=== PATIENT | female | born 1945 | race Caucasian/White ===

== ENCOUNTER 2018-02-02 12:36 | Inpatient (IN) | payer MEDICARE, OTHER ==
[~2018-02-02] VITALS: Ht 167.6 cm; Wt 110.2 kg
--- NOTE | ~2018-02-02 | DS ---
[place], [place] DISCHARGE SUMMARY [facility]: [id number] UN[facility] #: [id number] ROOM: 312 DOCTOR: JELENA ACOSTA DO BIRTHDATE: [birth year] DOS: 02/07/2018 PSYCHIATRIC DISCHARGE SUMMARY CHIEF COMPLAINT: "I don't like that place, I don't want to go back there." PRESENT ILLNESS: The patient is a 72-year-old white female who presented to [facility] for reported increasing depression and impulsive activity including smoking while on supplemental oxygen, eloping the facility to obtain more cigarettes and to continue to smoke in her room. The patient states that she was unaware that she was coming to the [facility] and states that she was not told that she was coming to a psych facility; however, per nursing staff when they were bringing her up to the unit, when asked if she knew where she was going, the patient stated psychiatric unit. Of note, in the chart, per chart review, the patient was engaging in high risk behavior that was very impulsive in nature. She was also showing signs of progressing depressive symptoms including that she was not eating well, sleeping well and not attending to her ADLs. The patient was sent to the [facility] for medical stabilization and to rule out organic causes of her altered mental status. The patient upon admission was requesting alternative finding, alternative housing options as she did not want to return to [facility]. PAST MEDICAL HISTORY: This is significant for coronary artery disease, COPD, glaucoma, diabetes, neuropathy, vitamin D deficiency and nicotine dependence. SOCIAL HISTORY: The patient denied alcohol use. The patient also denied illicit drug use. The patient is a current smoker. She is currently smoking 1 pack a day and she is currently on supplemental oxygen 2-3 liters at home. STRENGTHS: The patient is highly educated. She was a former registered nurse. She has excellent verbal skills. She is currently ambulatory with a walker. ALLERGIES: The patient is allergic to HYDROMORPHONE. SUMMARY OF HOSPITAL COURSE: The patient was admitted to the [facility] and at that time, it was decided to increase her Cymbalta from 60 mg at bedtime to 90 mg at bedtime. This was done in order to positively impact her mood as well as decreasing the pain of neuropathy and to assist with her anxiety. The patient stated at that time that she was interested in smoking cessation. The following day, the patient stated that Cymbalta was helping with her mood and had decreased her pain. She stated she was making progress with a nicotine patch and stated that she was having decreased cravings. At that time, it was decided to not make any changes to her psychotropic regimen as she was tolerating this well. The patient continued to state that she was no longer having cravings for nicotine. It was decided at that time to lower the Nicoderm patch from 21 to 14 mg a day. Cymbalta was continued. The patient also expressed her interest in finding alternative housing as she stated she did not want to return to [facility]. At that time, we discussed that PT and OT would be consulted for further recommendations for possible discharge options. PT was consulted and they recommend that the patient be discharged back to [place], [place] DISCHARGE SUMMARY NAME: SHAJI TERRELL UNIT #: [id number] ROOM: 312 DOCTOR: JELENA ACOSTA DO BIRTHDATE: [birth year] when medically stable. OT was also consulted, but per OT report, the patient refused to participate in therapy. The patient was made aware of this and we also had a discussion at length regarding her decision to not participate in therapy may make it difficult for her to find alternative housing. She stated that she was now willing to return to [facility]. We also discussed at great length the safety issues regarding her smoking with supplemental oxygen. She stated that she was ready to quit smoking and that the nicotine patch was working. At that time, she stated that she was having signs of increased depression. We discussed starting Wellbutrin, which she voiced understanding and was in agreement. Wellbutrin was started in order to augment the effects of Cymbalta. The patient tolerated this change well and states that she is having decreased anxiety, decreased depression and decreased cravings on current psychotropic regimen. Sleep and appetite have normalized. The patient was able to tolerate current psychotropic regimen well and did not exhibit any side effects from the medication. She has improved significantly to return back to [facility]. She states that she will continue her nicotine cessation progress. Sleep and appetite have normalized. Gabapentin level was ordered on 02/05/2018 and these results are still pending upon discharge. They are not available for review at this time. The patient was informed that she will be discharged back to [facility] and she is in agreement with plan. MENTAL STATUS AT DISCHARGE: The patient is alert and oriented to person, place and time. Her mood is trending towards euthymia. Her affect is more appropriate. There are no signs of bill or hypomania. There are no signs of gross psychosis. The patient has been cooperative to reorientation by nursing staff. She is compliant with medications. Short term and shelter memories are intact. It is unsure at this time if the patient has been forthcoming with her symptoms in regards to craving for nicotine, however, she states that the Nicoderm patch has assisted in her smoking cessation and she plans to continue to quit smoking. No signs of auditory or visual hallucination. The patient has been attending to her ADLs without any difficulty. The patient has been participating in group. She has been medication compliant. FINAL DIAGNOSES AT DISCHARGE: Major depression disorder, recurrent, severe. PLAN: The patient is to return back to [facility] via [facility]. Discharge is tentatively scheduled for departure from [facility] to [facility] at 3:00 p.m. today. Prescriptions have been printed and placed in her chart. These will go with her to [facility]. She will be followed by the staff psychiatrist there. ADDENDUM BY DR. ECHEVERRIA 02/16/18 11:15 AM: Above note reviewed. Agree with observations, recommendations, and overall treatment plan. [place], [place] DISCHARGE SUMMARY NAME: SHAJI TERRELL UNIT #: [id number] ROOM: 312 DOCTOR: JELENA ACOSTA DO BIRTHDATE: [birth year] Jelena Acosta DO GLORIA ECHEVERRIA MD CM:DISCHARG [id number] T: JELENA ACOSTA DO 02/16/18 1407 JOVAN LAZAR [facility]
--- NOTE | ~2018-02-02 | PR ---
[place], [place] PROGRESS NOTE NAME: SHAJI TERRELL UNIT #: [id number] ROOM: 312 DOCTOR: GLORIA ECHEVERRIA MD BIRTHDATE: [birth year] DOS: 02/05/2018 CHIEF COMPLAINT: "I am doing so much better, thank you so much for helping me." SUMMARY OF THE VISIT: The patient was interviewed as she sat after having completed breakfast. She was talking to both male and female peers. She smiled readily as I approached and reported that she is feeling so much better with the medication changes and with the fact that the Nicoderm seems to be helping curb her cravings. She does feel that she can successfully go from 21 to 14 at this point. She does also note no side effects from the recent increase in the Cymbalta and feels that has helped curb her pain as well as combat depression. She is sleeping well and eating well. MENTAL STATUS: She is alert and oriented. Mood does seem to be strongly trending towards euthymia. Affect is more appropriate. There is no bill or hypomania. There is no gross psychosis. Short, intermediate, and long-term memory are intact. PLAN: I will go ahead and lower the Nicoderm patch from 21-14 mg a day. Continue the Cymbalta. Continue to engage in individual and ramos milieu activity, returning to the least restrictive environment when stable. GLORIA ECHEVERRIA MD CM:PNTRANS [id number] GLORIA ECHEVERRIA MD 02/05/18 1256 interface
--- NOTE | ~2018-02-02 | PR ---
[place], [place] PROGRESS NOTE [id number] UNIT #: [id number] ROOM: 312 DOCTOR: JELENA ACOSTA DO BIRTHDATE: [birth year] DOS: 02/06/2018 CHIEF COMPLAINT: "I still have cravings every time I eat." SUMMARY OF VISIT: The patient is a 72-year-old white female who [facility] for reported increased depression and impulsive actions which included smoking while on supplemental oxygen at [facility] in [place]. The patient today was interviewed in the dining room. She had just finished her breakfast. She did not appear to be in any distress. Her only complaints this morning were of persistent cravings to smoke after mealtimes. She also was complaining of dry eyes at this time. We reassured her that we would be assisting her in her smoking cessation; however, per nursing staff, she has stated to some nursing staff members that she was not having cravings and today she did mention to us that she was having cravings. The patient also reports improvement in her depression; however, she states that she still is feeling that she is still depressed. Eating and appetite have improved and her sleep has improved overall. The patient was reassured that her eye drops are scheduled for her to receive at nighttime. Respiratory was present and they have decreased her oxygen to 3 liters. MENTAL STATUS EXAMINATION: The patient is alert and oriented to person, place and time. Her mood is trending towards euthymia. Her affect is more appropriate. No signs of bill or hypomania. There are no signs of gross psychosis. The patient is able to be reoriented by nursing staff. She is compliant with medications. Short term, maintenance repairer memory are intact. It is unsure at this time if patient is forthcoming with her symptoms of cravings for nicotine as she is telling nursing staff otherwise. PLAN: 1. The patient was informed that we would be starting Wellbutrin 75 mg q.a.m. and 75 mg p.o. at 1400. This will be used to augment Cymbalta and to address her depression. 2. OT was consulted; however, per OT, the patient refused to participate in therapy. PT was also consulted and they recommended the patient to be discharged back to [facility] when medically stable. 3. Dry eyes. The patient is currently scheduled to receive Latanoprost drops at bedtime for dry eyes. The patient was also encouraged to increase fluid intake due to her complaints of dry mouth. 4. We will continue Nicoderm patch 14 mg a day to assist with her smoking cessation. 5. Disposition. The patient is likely to be discharged sometime this week. We will coordinate with social organization professor and project planner in terms of what her options are taking into consideration OT and PT recommendations. The patient was also informed that she must do her best to quit smoking as it is difficult to find placement for her given her recurrent episodes of smoking while being in the intermediate care facility. She voiced understanding and stated that she will work towards smoking cessation during this hospital admission. We also reiterated the importance of safety as it is not safe to smoke while on supplemental oxygen. The patient voiced understanding and is in agreement with plan: We will continue to engage in individual and ramos milieu activity, [place], [place] PROGRESS NOTE NAME: SHAJI TERRELL UNIT #: [id number] ROOM: [facility] DOCTOR: JELENA ACOSTA DO BIRTHDATE: [birth year] returning to the least restrictive environment when psychiatrically stable. ADDENDUM BY DR. ECHEVERRIA 02/16/18 11:15 AM: Above note reviewed. Agree with observations, recommendations, and overall treatment plan. Jelena Acosta DO GLORIA ECHEVERRIA MD CM:PNTRANS [id number] T: JELENA ACOSTA DO 02/16/18 1406 JOVAN LAZAR.ALEXANDRR
--- NOTE | ~2018-02-02 | PR ---
[place], [place] PROGRESS NOTE NAME: SHAJI TERRELL UNIT #: [id number] ROOM: 312 DOCTOR: GLORIA ECHEVERRIA MD BIRTHDATE: [birth year] DOS: 02/04/2018 CHIEF COMPLAINT: "I am so mad at [facility]. They lied to me. SUMMARY OF THE VISIT: This patient was interviewed in the group therapy room. She reports to me that she is upset with [facility] and feels that they lied to her stating that she was coming to an inpatient smoking cessation program and did not mention anything about her going into a psychiatric unit. She does say that she has improved since she has been here and feels that the medication adjustment with the Cymbalta has actually helped her mood and has decreased her pain as well. She also feels she is making progress with the nicotine patch and feels that she is having less cravings. She still voices disappointment with the facility, though stating that she feels that they lied to her repeatedly to do whatever they wanted to do at a convenience. MENTAL STATUS: She is alert and oriented with some gaps. Mood does seem to be trending towards euthymia. Affect is more appropriate. There is no bill or hypomania. There are no overt auditory or visual hallucinations. No delusions, no paranoia. Short, intermediate, and long-term memory for the most part are intact. PLAN: I will maintain her current psychotropic regimen. I will check a Neurontin level in the morning to ensure that it is therapeutic. Continue to engage in individual and ramos milieu activity, returning to the least restrictive environment when psychiatrically stable. GLORIA ECHEVERRIA MD CM:PNTRANS [id number] GLORIA ECHEVERRIA MD 02/04/182045 interface
--- NOTE | ~2018-02-02 | WRIGHTHP ---
[place], [place] PATIENT HISTORY AND PHYSICAL EXAM NAME: SHAJI TERRELL UNIT #: [id number] ROOM: 312 DOCTOR: GLORIA ECHEVERRIA MD BIRTHDATE: [birth year] DOS: 02/03/2018 CHIEF COMPLAINT: "I don't like it at that place. I do not want to go back." HISTORY OF PRESENT ILLNESS: This is a 72-year-old white female known to me from her stay at [place], [place]. The patient presents now to [facility] for reported increase in depression with impulsive actions that includes smoking while on oxygen, eloping the facility to obtain more cigarettes and repeatedly smoking in her room. The patient has apparently, per their report, been engaging in high risk behavior and is very impulsive. The patient reports ongoing depressive symptoms, however, and states that she is not sleeping well, eating well, not attending to her ADLs and just feels hopeless and helpless because of her stay there. She is requesting that her meds be adjusted and that we help her find alternative placement. She is admitted now to rule out any organic factors, to engage in individual and ramos milieu activity, returning her then to the least restrictive environment when psychiatrically stable. PAST MEDICAL HISTORY: Significant for coronary artery disease, COPD, glaucoma, diabetes, neuropathy, vitamin D deficiency and nicotine dependence. Past medical history is also remarkable for smoking 1 pack of cigarettes per day. She denies any alcohol or illicit drug use. 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 She has good verbal skills and she is ambulatory. MENTAL STATUS: She is alert and oriented times 3. Mood does seem to be somewhat depressed with anxious overtones. She endorses multiple neurovegetative symptoms. There is no bill or hypomania. There is no gross psychosis. Short, intermediate, and long-term memory for the most part are intact. DIAGNOSIS: Major depression, recurrent. PLAN: I will go ahead and increase her Cymbalta from 60 mg at bedtime to 90 mg at bedtime trying to impact positively on her mood as well as decreasing the pain of the neuropathy and helping with anxiety. We will engage her in individual and ramos milieu activity. financial services counselor is aware to look for alternative placement if at all possible. We will return then to the least restrictive environment when psychiatrically stable. [place], [place] PATIENT HISTORY AND PHYSICAL EXAM NAME: SHAJI TERRELL UNIT #: [id number] ROOM: 312 DOCTOR: GLORIA ECHEVERRIA MD BIRTHDATE: [birth year] GLORIA ECHEVERRIA MD CM:HISPHYS:PATIENT HISTORY AND PHYSICAL EXAMINATION [id number] GLORIA ECHEVERRIA MD 02/16/18 0825 interface
[2018-02-02] MEDS ORDERED: ASPIRIN81 M1 PO (15:29)
[2018-02-02] MEDS ORDERED: BASAG SOL SQ (15:30)
[2018-02-02] MEDS ORDERED: BENADRYL ALLERG25 M5 PO (15:31)
[2018-02-02] MEDS ORDERED: CYMBALTA60 MG PO (15:32)
[2018-02-02] MEDS ORDERED: CHLORASEPTIC S1 EACH PO (15:32)
[2018-02-02] MEDS ORDERED: COLACE100 MG PO (15:32)
[2018-02-02] MEDS ORDERED: DUONEB 3 MG/3 ML3 M1 INH (15:33)
[2018-02-02] MEDS ORDERED: DULCOLAX10 M1 R (15:33)
[2018-02-02] MEDS ORDERED: 24 HOUR ALLER15.8 ML INH (15:34)
[2018-02-02] MEDS ORDERED: ROBITUSSIN5 ML PO (15:35)
[2018-02-02] MEDS ORDERED: GABAPENTIN600 MG PO (15:35)
[2018-02-02] MEDS ORDERED: LATANOPROST2.5 ML OU (15:36)
[2018-02-02] MEDS ORDERED: GLUCOPHAGE500 M1 PO (15:37)
[2018-02-02] MEDS ORDERED: MECLIZINE HCL12.5 MG PO (15:37)
[2018-02-02] MEDS ORDERED: NITROSTAT0.4 MG PO (15:38)
[2018-02-02] MEDS ORDERED: NOVOLOG FL100 UNIT/1 SQ (15:41)
[2018-02-02] MEDS ORDERED: NYSTATIN CREAM15 GM T (15:42)
[2018-02-02] MEDS ORDERED: PRASUGREL HCL10 MG PO (15:42)
[2018-02-02] MEDS ORDERED: SYMB160 INH (15:43)
[2018-02-02] MEDS ORDERED: SIMETHICONE80 MG PO (15:43)
[2018-02-02] MEDS ORDERED: PROVENTIL HFA6.7 GM INH (15:48)
[2018-02-02] MEDS ORDERED: VITAMIN D350000 UNIT PO (15:49)
[2018-02-02 20:19] VITALS: BP 111/75
[2018-02-02 20:34] VITALS: BP 110/54
[2018-02-02 20:44] VITALS: BP 110/54
[2018-02-03 07:02] LABS: BASO % 0.4 % (0.0-1.0); EOS # 0.1 10*3/uL (0.0-0.4); EOS % 1.4 % (1.0-4.0); HEMATOCRIT 46.3 % (37.0-47.0); HEMOGLOBIN 14.8 g/dl (12.0-16.0); LYMPH # 2.9 10*3/uL (1.3-4.4); LYMPH % 30.1 % (27.0-41.0); MEAN CELL VOLUME 87.2 fl (81.0-99.0); MEAN CORPUSCULAR HGB 27.9 pg (27.0-31.0); MEAN PLATELET VOLUME 10.5 fl (9.6-12.3); MONO # 0.8 10*3/uL (0.1-1.0); MONO % 7.7 % (3.0-9.0); NEUT # 5.9 10*3/uL (2.3-7.9); PLATELET COUNT AUTOMATED 231 10*3/uL (130-400); RED BLOOD COUNT 5.31 10*6/uL (4.10-5.10); RED CELL DISTRI WIDTH 13.2 % (0-14.5); WHITE BLOOD COUNT 9.8 10*3/uL (4.8-10.8)
[2018-02-03 07:47] LABS: ALBUMIN 3.3 gm/dl (3.1-4.5); BUN 12 mg/dl (7-24); CHLORIDE 96 mmol/L (98-107); POTASSIUM 4.2 mmol/L (3.5-5.1); SGPT/ALT 30 U/L (12-78); SODIUM 136 mmol/L (136-145)
[2018-02-03 07:55] VITALS: BP 122/60
[2018-02-03 07:58] LABS: ALKALINE PHOSPHATASE 75 U/L (45-117); CHOLESTEROL 202 mg/dL (<200); CREATININE 0.81 mg/dL (0.55-1.02); HDL CHOLESTEROL 30 mg/dl (40-60); LDL CHOLESTEROL 120 mg/dL (9-159); SGOT/AST 20 IU/L (3-35); TOTAL PROTEIN 7.2 gm/dL (6.4-8.2); TRIGLYCERIDES 261 mg/dl (<150); VLDL CHOLESTEROL 52 mg/dL (6-40)
[2018-02-03 08:07] LABS: VITAMIN D, 25-HYDROXY 28.2 ng/mL (30-100)
[2018-02-03 20:06] VITALS: BP 120/68
[2018-02-04 06:43] LABS: BILIRUBIN NEGATIVE (NEGATIVE); BLOOD NEGATIVE (NEGATIVE); CLARITY CLEAR (CLEAR); COLOR YELLOW (YELLOW); GLUCOSE NEGATIVE (NEGATIVE); KETONE NEGATIVE (NEGATIVE); LEUKO ESTERASE NEGATIVE (NEGATIVE); NITRITE NEGATIVE (NEGATIVE); PH 5.5 (5.0-9.0); SPECIFIC GRAVITY <= 1.005 (1.005-1.030); UROBILINOGEN 0.2 E.U./dl (0.2-1.0)
[2018-02-04 08:04] VITALS: BP 146/59
[2018-02-04 20:00] VITALS: BP 128/68
[2018-02-05 07:53] VITALS: BP 128/58
[2018-02-05 20:00] VITALS: BP 124/43
[2018-02-06 07:34] VITALS: BP 112/60
[2018-02-06 20:04] VITALS: BP 109/62
[2018-02-07 07:39] VITALS: BP 135/70
[2018-02-07] MEDS ORDERED: BUPROPION75 MG PO ×2 (08:55)
[2018-02-07] MEDS ORDERED: NICODERM T (08:55)
[2018-02-07] MEDS ORDERED: DULOXETINE HCL30 MG PO (08:55)
[2018-02-09 08:11] LABS: NEURONTIN (GABAPENTIN) 5.4 ug/mL (4.0-16.0)
== END 2018-02-07 16:43 | DRG 885 ==
LOC: 3N 12:36
PROVIDERS: Psychiatry & Neurology Psychiatry
DX: F33.2 Major depressive disorder, recurrent severe without psychotic features (principal); E11.40 Type 2 diabetes mellitus with diabetic neuropathy, unspecified; E11.39 Type 2 diabetes mellitus with other diabetic ophthalmic complication; Z99.81 Dependence on supplemental oxygen; Z79.899 Other long term (current) drug therapy; J44.9 Chronic obstructive pulmonary disease, unspecified; F17.210 Nicotine dependence, cigarettes, uncomplicated; I25.10 Atherosclerotic heart disease of native coronary artery without angina pectoris; H40.9 Unspecified glaucoma; F41.9 Anxiety disorder, unspecified; F63.9 Impulse disorder, unspecified; E55.9 Vitamin D deficiency, unspecified; Z88.8 Allergy status to other drugs, medicaments and biological substances; Z71.6 Tobacco abuse counseling; I25.2 Old myocardial infarction; Z91.14 Patient's other noncompliance with medication regimen; Z90.49 Acquired absence of other specified parts of digestive tract; Z98.61 Coronary angioplasty status; Z82.49 Family history of ischemic heart disease and other diseases of the circulatory system; Z80.8 Family history of malignant neoplasm of other organs or systems; Z79.82 Long term (current) use of aspirin; Z79.4 Long term (current) use of insulin